=== PATIENT | female | born 1955 | race Caucasian/White ===

== ENCOUNTER 2019-09-16 22:14 | Inpatient (IN) | payer OTHER, MEDICAID ==
[~2019-09-16] VITALS: Ht 162.6 cm; Wt 54.4 kg
[2019-09-16] MEDS ORDERED: NACL 0.9% 1,000 ML IV SCH (22:16)
[2019-09-16] MEDS ORDERED: ACETAMINOPHEN 650 MG SUPP RC ONE (22:20)
[2019-09-16] MEDS ORDERED: ACETAMINOPHEN 650 MG/20.3 ML UDC PO ONE (22:20)
[2019-09-16] MEDS ORDERED: ACETAMINOPHEN 650 MG/20.3 ML UDC ONE (22:21)
[2019-09-16 22:27] VITALS: BP 120/75
[2019-09-16 23:06] LABS: APPEARANCE,URINE CLOUDY (CLEAR); BILIRUBIN,URINE NEGATIVE (NEGATIVE); BLOOD, URINE 1+ (NEGATIVE); COLOR,URINE YELLOW (YELLOW); LEUKOCYTE ESTERASE ,URINE NEGATIVE (NEGATIVE); NITRITE, URINE NEGATIVE (NEGATIVE); UGLUCOSE NEGATIVE (NEGATIVE)
[2019-09-16 23:16] LABS: BASOPHILS # (AUTO) 0.1 K/uL (0.00-0.22); BASOPHILS % (AUTO) 0.3 % (0.0-2.0); EOSINOPHILS % (AUTO) 0.1 % (0.0-4.0); HEMATOCRIT 40.8 % (36-48); HEMOGLOBIN 13.5 g/dL (12.0-16.0); LYMPHOCYTES # (AUTO) 1.5 K/uL (2.5-16.5); MEAN CORPUSCULAR HEMOGLOBIN 31 pg (27-31); MEAN CORPUSCULAR HGB CONC 33 g/dL (33-37); MEAN CORPUSCULAR VOLUME 92.4 fL (80-94); MONOCYTES # (AUTO) 1.5 K/uL (0.8-1.0); MONOCYTES % (AUTO) 7.8 % (1.7-9.3); NEUTROPHILS % (AUTO) 83.9 % (42.2-75.2); PLATELET COUNT (AUTO) 306 K/uL (140-450); RED BLOOD CELL COUNT(AUTO) 4.41 MIL/uL (4.20-5.40); RED CELL DISTRIBUTION WIDTH 13.9 % (11.6-13.7)
[2019-09-16 23:22] LABS: ALBUMIN 3.7 g/dL (3.4-5.0); ANION GAP 15.9 (8-16); CARBON DIOXIDE 25.3 mmol/L (21-32); CREATININE 0.8 mg/dL (0.6-1.3); POTASSIUM 4.2 mmol/L (3.5-5.1); TOTAL BILIRUBIN 0.5 mg/dL (0.0-1.0)
[2019-09-16 23:24] LABS: PROTHROMBIN TIME 9.5 secs (10.8-13.4)
[2019-09-16 23:30] LABS: RBC,URINE 0-5 /HPF (0-5); WBC,URINE 0-5 /HPF (0-5)
[2019-09-16 23:39] LABS: LYMPHOCYTES % (AUTO) 7.9 % (20.5-51.1); WHITE BLOOD COUNT (AUTO) 19.1 K/uL (4.8-10.8)
[2019-09-16] MEDS ORDERED: fentaNYL 0.05 MG/ML VIAL IVP ONE (23:40)
[2019-09-16] MEDS ORDERED: PIPERACILLIN/TAZOBACTAM 3.375 GM in DEXTROSE 5% 50 ML IV ONE (23:40)
[2019-09-16] MEDS ORDERED: VANCOMYCIN 1,000 MG in DEXTROSE 5% 250 ML IV ONE (23:40)
[2019-09-16] MEDS ORDERED: VANCOMYCIN 1,000 MG VIAL ONE (23:46)
[2019-09-16] MEDS ORDERED: PIPERACILLIN/TAZOBACTAM 3.375 GM VIAL IV ONE (23:47)
[2019-09-17] MEDS: NACL 0.9% 1,000 ML IV SCH ×3 (00:36→22:30)
[2019-09-17] MEDS ORDERED: ONDANSETRON 4 MG/2 ML VIAL IVP PRN (00:40)
[2019-09-17] MEDS ORDERED: VANCOMYCIN PER PHARMACY MC PRN (00:40)
[2019-09-17] MEDS ORDERED: ACETAMINOPHEN 325 MG TAB PO PRN (00:40)
[2019-09-17] MEDS ORDERED: SENN-73 PO (00:51)
[2019-09-17] MEDS ORDERED: HAL1 PO (00:51)
[2019-09-17] MEDS ORDERED: GUAI-646 PO (00:51)
[2019-09-17] MEDS ORDERED: BISA-213 RC (00:51)
[2019-09-17] MEDS ORDERED: NUTR-813 PO (00:51)
[2019-09-17] MEDS ORDERED: DEXT1CAP3 PO (00:51)
[2019-09-17] MEDS ORDERED: NA P135N RC ×2 (00:51→02:09)
[2019-09-17] MEDS ORDERED: ACET650S53 GT ×2 (00:51→02:09)
[2019-09-17] MEDS ORDERED: MELA5TAB6 PO (00:51)
[2019-09-17] MEDS ORDERED: SIME42TA PO (00:51)
[2019-09-17] MEDS ORDERED: MEMA5TAB PO (00:51)
[2019-09-17] MEDS ORDERED: POTA10TE30 PO (00:51)
[2019-09-17] MEDS ORDERED: ATOR10TA PO (00:51)
[2019-09-17] MEDS ORDERED: MAGN400S60 PO (00:51)
[2019-09-17] MEDS ORDERED: ALBU3SOL83 IH (00:51)
[2019-09-17] MEDS ORDERED: QUET100T PO (00:51)
[2019-09-17] MEDS ORDERED: CALC-38 PO (00:51)
[2019-09-17] MEDS ORDERED: MULT-153 PO (00:51)
[2019-09-17 01:39] LABS: FREE T4 (FREE THYROXINE) 0.95 ng/dL (0.76-1.46); PHOSPHORUS 4.6 mg/dL (2.5-4.9); THYROID STIMULATING HORMONE 2.47 uIU/mL (0.34-3.74)
[2019-09-17] MEDS ORDERED: HAL1 GT (02:09)
[2019-09-17] MEDS ORDERED: ATOR10TA GT (02:09)
[2019-09-17] MEDS ORDERED: MEMA5TAB GT (02:09)
[2019-09-17] MEDS ORDERED: DEXT1CAP3 GT (02:09)
[2019-09-17] MEDS ORDERED: SENN-73 GT (02:09)
[2019-09-17] MEDS ORDERED: SIME42TA GT (02:09)
[2019-09-17] MEDS ORDERED: CALC-38 GT (02:09)
[2019-09-17] MEDS ORDERED: POTA10TE30 GT (02:09)
[2019-09-17] MEDS ORDERED: MAGN400S60 GT (02:09)
[2019-09-17] MEDS ORDERED: MELA5TAB6 GT (02:09)
[2019-09-17] MEDS ORDERED: MULT-153 GT (02:09)
[2019-09-17] MEDS ORDERED: GUAI-646 GT (02:09)
[2019-09-17] MEDS ORDERED: QUET100T GT (02:09)
[2019-09-17] MEDS ORDERED: MAGNESIUM HYDROXIDE 2400 MG/30 ML UDC GT PRN (02:10)
[2019-09-17] MEDS ORDERED: BISACODYL 10 MG SUPP RC SCH (02:10)
[2019-09-17] MEDS ORDERED: MELATONIN 6 MG GT PRN (02:10)
[2019-09-17] MEDS ORDERED: SODIUM PHOSPHATE 118 ML ENEM RC PRN (02:10)
[2019-09-17] MEDS ORDERED: SIMETHICONE GT SCH (02:10)
[2019-09-17] MEDS ORDERED: guaiFENesin 20 MG/ML UDC PO PRN (02:10)
[2019-09-17] MEDS ORDERED: HALOPERIDOL 1 MG TAB GT PRN (02:10)
[2019-09-17] MEDS ORDERED: ALBUTEROL HFA MDI 90 MCG/ACTUATION 8 GM INH PRN (02:15)
[2019-09-17 04:00] VITALS: BP 111/71
[2019-09-17] MEDS: HYDROcodone/APAP 7.5/325 MG 1 TAB PO PRN ×3 (04:35→18:23)
[2019-09-17 06:54] LABS: CHOL/HDL RATIO 2.1 (1-4.5)
[2019-09-17] MEDS ORDERED: MELATONIN 3 MG TAB PO PRN (07:50)
[2019-09-17] MEDS ORDERED: SIMETHICONE 40 MG/0.6 ML PO PRN (07:55)
[2019-09-17 08:00] VITALS: BP 99/68
[2019-09-17] MEDS: PIPERACILLIN/TAZOBACTAM 3.375 GM in DEXTROSE 5% 50 ML IV SCH ×3 (08:00→23:40)
[2019-09-17] MEDS ORDERED: CALCIUM CARBONATE GT SCH (09:00)
[2019-09-17] MEDS ORDERED: POTASSIUM CHLORIDE 10 MEQ TABER PO SCH (09:00)
[2019-09-17] MEDS ORDERED: NON-FORMULARY ITEM (Dextromethorphan HBr/Quinidine (Nuedexta 20-10 mg Capsule) 1 CAP) GT SCH (09:00)
[2019-09-17] MEDS ORDERED: VITAMIN D3 GT SCH (09:00)
[2019-09-17] MEDS ORDERED: [UNRECOGNIZED DRUG - OTHER] GT SCH (09:00)
[2019-09-17] MEDS: QUEtiapine FUMARATE 100 MG TAB GT SCH ×2 (09:37→20:46)
[2019-09-17] MEDS: MULTIVITAMIN 1 TAB GT SCH (09:37)
[2019-09-17] MEDS: DOCUSATE SODIUM 100 MG GELCAP PO SCH ×2 (09:37→20:47)
[2019-09-17] MEDS ORDERED: CRUSHER, PILL MC ONE (09:42)
[2019-09-17] MEDS ORDERED: BISACODYL 10 MG SUPP RC PRN (11:39)
[2019-09-17] MEDS: VANCOMYCIN 500 MG in DEXTROSE 5% 100 ML IV SCH (11:49)
[2019-09-17 12:00] VITALS: BP 92/66
[2019-09-17 16:00] VITALS: BP 95/70
[2019-09-17 20:00] VITALS: BP 90/53
[2019-09-17] MEDS: SENNA 8.6 MG TAB GT SCH (20:45)
[2019-09-17] MEDS: ATORVASTATIN 20 MG TAB GT SCH (20:46)
[2019-09-18] VITALS: BP 89/53
[2019-09-18] MEDS: VANCOMYCIN 500 MG in DEXTROSE 5% 100 ML IV SCH (00:14)
[2019-09-18 04:00] VITALS: BP 88/54
[2019-09-18 06:06] LABS: ANION GAP 11.4 (8-16); CARBON DIOXIDE 26.5 mmol/L (21-32); CREATININE 0.6 mg/dL (0.6-1.3); POTASSIUM 3.9 mmol/L (3.5-5.1)
[2019-09-18 06:14] LABS: MAGNESIUM 1.9 mg/dL (1.8-2.4); PHOSPHORUS 1.8 mg/dL (2.5-4.9)
[2019-09-18 06:21] LABS: BASOPHILS % (AUTO) 0.5 % (0.0-2.0); EOSINOPHILS # (AUTO) 0.2 K/uL (0-0.4); EOSINOPHILS % (AUTO) 2.2 % (0.0-4.0); HEMATOCRIT 28.9 % (36-48); HEMOGLOBIN 9.6 g/dL (12.0-16.0); LYMPHOCYTES % (AUTO) 10.6 % (20.5-51.1); MEAN CORPUSCULAR HEMOGLOBIN 32 pg (27-31); MEAN CORPUSCULAR HGB CONC 33 g/dL (33-37); MEAN CORPUSCULAR VOLUME 94.4 fL (80-94); MONOCYTES # (AUTO) 0.8 K/uL (0.8-1.0); MONOCYTES % (AUTO) 8.3 % (1.7-9.3); NEUTROPHILS # (AUTO) 7.4 K/uL (1.8-7.7); NEUTROPHILS % (AUTO) 78.4 % (42.2-75.2); PLATELET COUNT (AUTO) 189 K/uL (140-450); RED BLOOD CELL COUNT(AUTO) 3.06 MIL/uL (4.20-5.40); RED CELL DISTRIBUTION WIDTH 14.5 % (11.6-13.7); WHITE BLOOD COUNT (AUTO) 9.4 K/uL (4.8-10.8)
[2019-09-18] MEDS: NACL 0.9% 1,000 ML IV SCH ×2 (07:02→16:12)
[2019-09-18 08:00] VITALS: BP 110/69
[2019-09-18] MEDS ORDERED: SODIUM PHOS / POTASSIUM PHOS 1 PKT PDR PO SCH (08:00)
[2019-09-18] MEDS: PIPERACILLIN/TAZOBACTAM 3.375 GM in DEXTROSE 5% 50 ML IV SCH ×3 (08:43→23:17)
[2019-09-18] MEDS: DOCUSATE SODIUM 100 MG GELCAP PO SCH ×2 (08:46→21:18)
[2019-09-18] MEDS: QUEtiapine FUMARATE 100 MG TAB GT SCH ×2 (08:46→21:18)
[2019-09-18] MEDS: CALCIUM CARB/VIT-D 500 MG/200 IU 1 TAB GT SCH (08:46)
[2019-09-18] MEDS: MEMANTINE 10 MG TAB GT SCH (08:47)
[2019-09-18] MEDS: MULTIVITAMIN 1 TAB GT SCH (08:47)
[2019-09-18 12:00] VITALS: BP 111/71
[2019-09-18] MEDS: VANCOMYCIN 750 MG in DEXTROSE 5% 250 ML IV SCH (13:41)
[2019-09-18] MEDS ORDERED: Z-GUARD PASTE TP PRN (15:05)
[2019-09-18 16:00] VITALS: BP 128/80
[2019-09-18] MEDS: HYDROcodone/APAP 7.5/325 MG 1 TAB PO PRN (16:10)
[2019-09-18 20:33] VITALS: BP 119/68
[2019-09-18] MEDS: SENNA 8.6 MG TAB GT SCH (21:16)
[2019-09-18] MEDS: ATORVASTATIN 20 MG TAB GT SCH (21:18)
[2019-09-19] MEDS: VANCOMYCIN 750 MG in DEXTROSE 5% 250 ML IV SCH ×2 (00:08→13:26)
[2019-09-19 00:23] VITALS: BP 108/67
[2019-09-19 04:10] VITALS: BP 106/67
[2019-09-19] MEDS: NACL 0.9% 1,000 ML IV SCH (04:21)
[2019-09-19] MEDS: HYDROcodone/APAP 7.5/325 MG 1 TAB PO PRN ×2 (04:54→20:20)
[2019-09-19 06:11] LABS: ANION GAP 10.9 (8-16); CARBON DIOXIDE 27.9 mmol/L (21-32); CREATININE 0.5 mg/dL (0.6-1.3); POTASSIUM 3.8 mmol/L (3.5-5.1)
[2019-09-19 06:16] LABS: MAGNESIUM 1.8 mg/dL (1.8-2.4); PHOSPHORUS 2.2 mg/dL (2.5-4.9)
[2019-09-19 06:17] LABS: BASOPHILS % (AUTO) 0.6 % (0.0-2.0); EOSINOPHILS # (AUTO) 0.3 K/uL (0-0.4); EOSINOPHILS % (AUTO) 4.4 % (0.0-4.0); HEMATOCRIT 30.3 % (36-48); LYMPHOCYTES # (AUTO) 1.4 K/uL (2.5-16.5); LYMPHOCYTES % (AUTO) 19.1 % (20.5-51.1); MEAN CORPUSCULAR HEMOGLOBIN 31 pg (27-31); MEAN CORPUSCULAR HGB CONC 33 g/dL (33-37); MEAN CORPUSCULAR VOLUME 94.7 fL (80-94); MONOCYTES # (AUTO) 0.7 K/uL (0.8-1.0); MONOCYTES % (AUTO) 9.4 % (1.7-9.3); NEUTROPHILS # (AUTO) 4.8 K/uL (1.8-7.7); NEUTROPHILS % (AUTO) 66.5 % (42.2-75.2); PLATELET COUNT (AUTO) 199 K/uL (140-450); RED BLOOD CELL COUNT(AUTO) 3.19 MIL/uL (4.20-5.40); RED CELL DISTRIBUTION WIDTH 14.2 % (11.6-13.7); WHITE BLOOD COUNT (AUTO) 7.2 K/uL (4.8-10.8)
[2019-09-19] MEDS: NACL 0.45% 1,000 ML IV SCH ×2 (07:00→17:00)
[2019-09-19 08:00] VITALS: BP 145/82
[2019-09-19] MEDS: FERROUS SULFATE 300 MG/5 ML UDC GT SCH (08:22)
[2019-09-19] MEDS: PIPERACILLIN/TAZOBACTAM 3.375 GM in DEXTROSE 5% 50 ML IV SCH ×2 (08:22→16:50)
[2019-09-19] MEDS: MULTIVITAMIN 1 TAB GT SCH (08:23)
[2019-09-19] MEDS: DOCUSATE SODIUM 100 MG GELCAP PO SCH ×2 (08:23→20:20)
[2019-09-19] MEDS: CALCIUM CARB/VIT-D 500 MG/200 IU 1 TAB GT SCH (08:23)
[2019-09-19] MEDS: QUEtiapine FUMARATE 100 MG TAB GT SCH ×2 (08:23→20:20)
[2019-09-19] MEDS: ASCORBIC ACID 500 MG/5 ML ORASYR GT SCH (08:23)
[2019-09-19] MEDS: MEMANTINE 10 MG TAB GT SCH (08:24)
[2019-09-19] MEDS ORDERED: POTASSIUM PHOSPHATE 15 MM in NACL 0.9% 250 ML IV SCH (10:00)
[2019-09-19 12:00] VITALS: BP 129/88
[2019-09-19 16:00] VITALS: BP 137/64
[2019-09-19 20:00] VITALS: BP 153/95
[2019-09-19] MEDS: SENNA 8.6 MG TAB GT SCH (20:20)
[2019-09-19] MEDS: ATORVASTATIN 20 MG TAB GT SCH (20:20)
[2019-09-20] VITALS: BP 119/87
[2019-09-20] MEDS: PIPERACILLIN/TAZOBACTAM 3.375 GM in DEXTROSE 5% 50 ML IV SCH ×3 (00:33→16:23)
[2019-09-20] MEDS: VANCOMYCIN 750 MG in DEXTROSE 5% 250 ML IV SCH (01:16)
[2019-09-20] MEDS: NACL 0.45% 1,000 ML IV SCH ×2 (02:40→13:38)
[2019-09-20] MEDS: HYDROcodone/APAP 7.5/325 MG 1 TAB PO PRN ×3 (03:52→17:44)
[2019-09-20 04:00] VITALS: BP 143/80
[2019-09-20 06:08] LABS: BASOPHILS # (AUTO) 0.1 K/uL (0.00-0.22); BASOPHILS % (AUTO) 1.5 % (0.0-2.0); EOSINOPHILS # (AUTO) 0.4 K/uL (0-0.4); EOSINOPHILS % (AUTO) 5.5 % (0.0-4.0); HEMOGLOBIN 9.5 g/dL (12.0-16.0); LYMPHOCYTES # (AUTO) 1.7 K/uL (2.5-16.5); LYMPHOCYTES % (AUTO) 26.6 % (20.5-51.1); MEAN CORPUSCULAR HEMOGLOBIN 32 pg (27-31); MEAN CORPUSCULAR HGB CONC 34 g/dL (33-37); MEAN CORPUSCULAR VOLUME 93.2 fL (80-94); MONOCYTES # (AUTO) 0.6 K/uL (0.8-1.0); NEUTROPHILS # (AUTO) 3.8 K/uL (1.8-7.7); NEUTROPHILS % (AUTO) 57.4 % (42.2-75.2); PLATELET COUNT (AUTO) 224 K/uL (140-450); RED BLOOD CELL COUNT(AUTO) 3.01 MIL/uL (4.20-5.40); RED CELL DISTRIBUTION WIDTH 13.8 % (11.6-13.7); WHITE BLOOD COUNT (AUTO) 6.5 K/uL (4.8-10.8)
[2019-09-20 06:24] LABS: ANION GAP 9.5 (8-16); CARBON DIOXIDE 31.4 mmol/L (21-32); CREATININE 0.5 mg/dL (0.6-1.3); POTASSIUM 3.9 mmol/L (3.5-5.1)
[2019-09-20 06:32] LABS: MAGNESIUM 1.9 mg/dL (1.8-2.4); PHOSPHORUS 3.1 mg/dL (2.5-4.9)
[2019-09-20 07:12] LABS: FOLIC ACID 14.6 ng/mL (>3.0)
[2019-09-20 08:00] VITALS: BP 164/93
[2019-09-20] MEDS: ASCORBIC ACID 500 MG/5 ML ORASYR GT SCH (08:58)
[2019-09-20] MEDS: FERROUS SULFATE 300 MG/5 ML UDC GT SCH (08:58)
[2019-09-20] MEDS: QUEtiapine FUMARATE 100 MG TAB GT SCH ×2 (08:58→20:16)
[2019-09-20] MEDS: MEMANTINE 10 MG TAB GT SCH (08:59)
[2019-09-20] MEDS: DOCUSATE SODIUM 100 MG GELCAP PO SCH ×2 (08:59→20:16)
[2019-09-20] MEDS: CALCIUM CARB/VIT-D 500 MG/200 IU 1 TAB GT SCH (08:59)
[2019-09-20] MEDS: MULTIVITAMIN 1 TAB GT SCH (08:59)
[2019-09-20 12:00] VITALS: BP 164/85
[2019-09-20 16:08] VITALS: BP 154/87
[2019-09-20 20:00] VITALS: BP 137/77
[2019-09-20] MEDS: SENNA 8.6 MG TAB GT SCH (20:15)
[2019-09-20] MEDS: ATORVASTATIN 20 MG TAB GT SCH (20:15)
[2019-09-21] VITALS: BP 118/83
[2019-09-21] MEDS: NACL 0.45% 1,000 ML IV SCH (00:40)
[2019-09-21] MEDS: PIPERACILLIN/TAZOBACTAM 3.375 GM in DEXTROSE 5% 50 ML IV SCH ×2 (00:42→08:31)
[2019-09-21 04:00] VITALS: BP 130/80
[2019-09-21] MEDS: HYDROcodone/APAP 7.5/325 MG 1 TAB PO PRN ×2 (04:18→08:33)
[2019-09-21 05:41] LABS: BASOPHILS # (AUTO) 0.1 K/uL (0.00-0.22); BASOPHILS % (AUTO) 1.2 % (0.0-2.0); EOSINOPHILS # (AUTO) 0.5 K/uL (0-0.4); EOSINOPHILS % (AUTO) 7.5 % (0.0-4.0); HEMATOCRIT 29.8 % (36-48); HEMOGLOBIN 10.1 g/dL (12.0-16.0); LYMPHOCYTES # (AUTO) 2.2 K/uL (2.5-16.5); LYMPHOCYTES % (AUTO) 31.2 % (20.5-51.1); MEAN CORPUSCULAR HEMOGLOBIN 32 pg (27-31); MEAN CORPUSCULAR HGB CONC 34 g/dL (33-37); MEAN CORPUSCULAR VOLUME 93.5 fL (80-94); MONOCYTES # (AUTO) 0.6 K/uL (0.8-1.0); MONOCYTES % (AUTO) 8.6 % (1.7-9.3); NEUTROPHILS # (AUTO) 3.6 K/uL (1.8-7.7); NEUTROPHILS % (AUTO) 51.5 % (42.2-75.2); PLATELET COUNT (AUTO) 259 K/uL (140-450); RED BLOOD CELL COUNT(AUTO) 3.18 MIL/uL (4.20-5.40); RED CELL DISTRIBUTION WIDTH 14.2 % (11.6-13.7)
[2019-09-21 06:06] LABS: ANION GAP 9.9 (8-16); CREATININE 0.6 mg/dL (0.6-1.3); POTASSIUM 3.9 mmol/L (3.5-5.1)
[2019-09-21 06:14] LABS: PHOSPHORUS 3.8 mg/dL (2.5-4.9)
[2019-09-21 08:00] VITALS: BP 134/98
[2019-09-21] MEDS ORDERED: [UNRECOGNIZED DRUG - CODE] IV (08:08)
[2019-09-21] MEDS: FERROUS SULFATE 300 MG/5 ML UDC GT SCH (08:11)
[2019-09-21] MEDS: MULTIVITAMIN 1 TAB GT SCH (08:11)
[2019-09-21] MEDS: ASCORBIC ACID 500 MG/5 ML ORASYR GT SCH (08:11)
[2019-09-21] MEDS: DOCUSATE SODIUM 100 MG GELCAP PO SCH (08:12)
[2019-09-21] MEDS: CALCIUM CARB/VIT-D 500 MG/200 IU 1 TAB GT SCH (08:12)
[2019-09-21] MEDS: QUEtiapine FUMARATE 100 MG TAB GT SCH (08:12)
[2019-09-21] MEDS: MEMANTINE 10 MG TAB GT SCH (08:12)
[2019-09-21] MEDS ORDERED: HALOPERIDOL IM 5 MG/ML VIAL IM SCH (08:19)
[2019-09-21 10:49] VITALS: BP 134/98
[2019-09-21] MEDS ORDERED: PNEUMOCOCCAL VACCINE 23 MCG/0.5 ML VIAL IMVAC SCH (11:15)
[2019-09-21 11:23] VITALS: BP 134/98
== END 2019-09-21 11:55 | DRG 871 ==
LOC: MED 22:14 → EEVIPCON 09-17 00:43 → UNDOADMIN 09-17 00:43 → MIC 09-17 00:43 → MTU 09-19 05:39
PROVIDERS: ADMIT General Practice; ATTEND General Practice
PROC: 02H633Z Insertion of Infusion Device into Right Atrium, Percutaneous Approach (ICD-10-PCS; principal; 2019-09-19)
PROC: B548ZZA Ultrasonography of Superior Vena Cava, Guidance (ICD-10-PCS; 2019-09-19)
PROC: 3E0234Z Introduction of Serum, Toxoid and Vaccine into Muscle, Percutaneous Approach (ICD-10-PCS; 2019-09-21)
DX: A41.9 Sepsis, unspecified organism (principal); J69.0 Pneumonitis due to inhalation of food and vomit; J96.01 Acute respiratory failure with hypoxia; E87.0 Hyperosmolality and hypernatremia; E83.39 Other disorders of phosphorus metabolism; E78.5 Hyperlipidemia, unspecified; E86.0 Dehydration; F03.90 Unspecified dementia, unspecified severity, without behavioral disturbance, psychotic disturbance, mood disturbance, and anxiety; F20.9 Schizophrenia, unspecified; F41.9 Anxiety disorder, unspecified; E87.8 Other disorders of electrolyte and fluid balance, not elsewhere classified; D64.9 Anemia, unspecified; E02 Subclinical iodine-deficiency hypothyroidism; R13.10 Dysphagia, unspecified; R79.89 Other specified abnormal findings of blood chemistry; R62.7 Adult failure to thrive; G47.00 Insomnia, unspecified; R65.20 Severe sepsis without septic shock; K59.09 Other constipation; Z68.20 Body mass index [BMI] 20.0-20.9, adult; Z93.1 Gastrostomy status; Z87.891 Personal history of nicotine dependence; Z88.8 Allergy status to other drugs, medicaments and biological substances; Z23 Encounter for immunization; Z03.818 Encounter for observation for suspected exposure to other biological agents ruled out
CPT/HCPCS: 36415; 36600; 71045; 71275; 80048; 80053; 80202; 81001; 82150; 82550; 82553; 82607; 82728; 82746; 82803; 83036; 83540; 83605; 83690; 83735; 83880; 84100; 84439; 84443; 84484; 85025; 85045; 85610; 85730; 87040; 87081; 87086; 87804; 90732; 93005; 96361; 96365; 96367; 96375; 99291; J1642; J1644; J2543; J3010; J3370; J7030; J7060; Q0092; Q9967; U0002